=== PATIENT | male | born 1980 | race Caucasian/White ===

== ENCOUNTER 2021-05-27 09:47 | Day surgery (SDC) | payer BC, MEDICAID ==
[~2021-05-27] VITALS: Ht 190.5 cm; Wt 104.5 kg
[2021-05-27 10:00] VITALS: BP 128/71
[2021-05-27] MEDS ORDERED: fentaNYL/PF 50MCG/1 ML 2ML syringe ONE (10:19)
[2021-05-27] MEDS ORDERED: [UNRECOGNIZED DRUG - CODE] PO (10:19)
[2021-05-27] MEDS ORDERED: CYCL-1 PO (10:19)
[2021-05-27] MEDS ORDERED: MIDAZolam 1 MG/ML 5ML VIAL ONE (10:19)
[2021-05-27] MEDS ORDERED: LIDOcaine Viscous 15ml cup ONE (10:19)
[2021-05-27 11:22] VITALS: BP 119/78
[2021-05-27 11:32] VITALS: BP 122/75
[2021-05-27 11:42] VITALS: BP 119/73
[2021-05-27 11:52] VITALS: BP 102/66
== END 2021-05-27 11:55 | disposition home or self-care (01) ==
LOC: GI LAB 09:47
PROVIDERS: ATTEND Internal Medicine Gastroenterology
DX: K21.00 Gastro-esophageal reflux disease with esophagitis, without bleeding (principal); K44.9 Diaphragmatic hernia without obstruction or gangrene; K29.50 Unspecified chronic gastritis without bleeding; K31.7 Polyp of stomach and duodenum; Z79.899 Other long term (current) drug therapy
CPT/HCPCS: 43239; 43251; 99152; C1773; J2250; J3010; J7040; Z7512; A4620